=== PATIENT | female | born 1965 | race African-American/Black ===

== ENCOUNTER 2018-04-06 20:18 | Emergency (ER) | payer OTHER ==
[~2018-04-06] VITALS: Ht 157.5 cm; Wt 65.8 kg
[~2018-04-06 20:18] MED LIST: ACYCLOVIR800 MG ORAL; ALBUTEROL SULF8.5 GM INH; ALBUTEROL2.5 MG/3 M HHN; ALBUTEROL2.5 MG/3 M INH; ATROVENT HFA12.9 GM IH; AZITHROMYCIN250 MG ORAL; AZITHROMYCIN250 MG PO; COUMADIN5 MG PO; CYCLOBENZAPRINE10 MG ORAL; DIGOXIN250 MCG PO; DILTIAZEM 24HR360 MG PO; DOXYCYCLINE HY100 M6 PO; DULERA 100 MCG/13 GM INH; FLOVENT2 PUFF2 INH; IBUPROFEN600 MG ORAL; LEVAQUIN750 MG ORAL; MEDROL DOSEPAK4 MG ORAL; METRONIDAZOLE250 MG PO; NORCO 5-325 TA1 EAC1 ORAL; NORCO 5-325 TA1 EACH ORAL; NORCO 5-325 TA1 EACH PO; NORCO 5/3251 TAB ORAL; PHENERGAN/CODE120 ML ORAL; PHENERGAN/CODE120 ML PO; PHENERGAN6.25 MG/5 ORAL; PREDNISONE10 M2 PO; PREDNISONE20 M1 PO; PREDNISONE20 MG ORAL; PREDNISONE20 MG PO; PREDNISONE50 MG ORAL; PROMETHAZINE-C118 M1 ORAL; PROTONIX20 MG PO; PROTONIX40 MG ORAL; ROBAXIN-750750 MG PO; ROBITUSSIN DM5 ML ORAL; SUCRALFATE1 GM/10 ML PO; SYMBICORT 1601 PUFFS INH; SYMBICORT2 PUFF1 INH; TRAMADOL HCL50 MG ORAL; VIBRAMYCIN100 MG ORAL
[2018-04-06] MEDS ORDERED: HYDROcodone/Acetamin 10/325 tab ORAL ONE (21:15)
[2018-04-06 21:18] LABS: ANION GAP 10 mmol/L (5-15); BLOOD UREA NITROGEN 12 mg/dL (7-18); CALCIUM 9.5 MG/DL (8.5-10.1); CARBON DIOXIDE 28 MMOL/L (21-32); CHLORIDE 103 MMOL/L (98-107); CREATININE 1.1 MG/DL (0.55-1.30); POTASSIUM 3.6 MMOL/L (3.5-5.1); SODIUM 141 MMOL/L (136-145)
[2018-04-06 21:22] LABS: ALANINE AMINOTRANSFERASE 23 U/L (12-78); ALBUMIN 4.2 G/DL (3.4-5.0); ALBUMIN/GLOBULIN RATIO 0.9 (1.0-2.7); ALKALINE PHOSPHATASE 101 U/L (46-116); ASPARTATE AMINO TRANSFERASE 23 U/L (15-37); BILIRUBIN,TOTAL 0.4 MG/DL (0.2-1.0)
[2018-04-06 21:25] LABS: BASOPHILS % (AUTO) 2.1 % (0.0-2.0); EOSINOPHILS % (AUTO) 5.9 % (0.0-3.0); HEMATOCRIT 40.2 % (37.0-47.0); HEMOGLOBIN 13.8 G/DL (12.0-16.0); LYMPHOCYTES % (AUTO) 22.7 % (20.0-45.0); MEAN CORPUSCULAR VOLUME 98 FL (80-99); MONOCYTES % (AUTO) 11.2 % (1.0-10.0); NEUTROPHILS % (AUTO) 58.2 % (45.0-75.0); PLATELET COUNT 102 K/UL (150-450); RED CELL DISTRIBUTION WIDTH 11.4 % (11.6-14.8); WHITE BLOOD COUNT 7.2 K/UL (4.8-10.8)
--- NOTE | 2018-04-06 21:42 | Diagnostic Imaging Report ---
EXAM: XR Right Ankle Complete, 3 or More Views CLINICAL HISTORY: SWELL TECHNIQUE: Frontal, lateral and oblique views of the right ankle. COMPARISON: No relevant prior studies available. FINDINGS: Bones/joints: No acute fracture or malalignment. Soft tissues: Diffuse soft tissue edema. No radiopaque foreign body. Vasculature: Vascular calcifications. IMPRESSION: Diffuse soft tissue edema. No acute osseous abnormality.
[2018-04-06] MEDS ORDERED: ACETAMINOPHEN-1 EAC1 ORAL (21:45)
[2018-04-06] MEDS ORDERED: Clindamycin 150mg cap ORAL ONE (21:45)
[2018-04-06] MEDS ORDERED: CLINDAMYCIN HC300 MG ORAL (21:45)
[2018-04-06 22:02] VITALS: BP 122/93
--- NOTE | 2018-04-08 19:33 | Cardiology Report ---
APPROVED REPORT EKG Measurement Heart [id number] Normal sinus rhythm Cannot rule out Anterior infarct, age undetermined Abnormal ECG
--- NOTE | 2018-04-09 14:28 | Emergency Room Report ---
History of Present Illness General Chief Complaint: Lower Extremity Injury Source: Patient Present Illness HPI Patient sense with complaints of right leg swelling and erythema Patient reports over the past one and a half days she has noticed increased swelling and redness denies any chest pain or short of breath denies any pleurisy Denies any fall or trauma patient was concerned that she might have been bitten by an insect pain is worse with ambulation also touch Denies any fevers or chills The area involves the foot and proximal made up to the calf area as well Allergies: Coded Allergies: AMOXICILLIN (Verified Allergy, Mild, 07/08/12) Patient History Past Medical History: see triage record Pertinent Family History: none Reviewed Nursing Documentation: PMH: Agreed; PSxH: Agreed Nursing Documentation-PMH Hx Cardiac Problems: Yes - a fib Hx Hypertension: Yes Hx Asthma: Yes Hx COPD: Yes - Intubated 2010 Hx Cancer: No Hx Gastrointestinal Problems: Yes - GERD, ulcers Hx Neurological Problems: No Hx Meningitis: Yes - 1989 Hx Headaches: Yes Review of Systems All Other Systems: negative except mentioned in HPI Physical Exam Vital Signs Date Time Temp Pulse Resp B/P (MAP) Pulse Ox O2 Delivery O2 Flow Rate FiO2 04/06/18 20:27 98.8 82 16 122/70 98 Room Air 98.8 Sp02 EP Interpretation: reviewed, normal General Appearance: well appearing, no apparent distress Head: normocephalic, atraumatic Eyes: bilateral eye PERRL, bilateral eye EOMI ENT: normal pharynx, no angioedema Neck: full range of motion, supple Respiratory: chest non-tender, lungs clear Cardiovascular #1: regular rate, rhythm Gastrointestinal: normal bowel sounds, non tender, soft Musculoskeletal: other - Erythema and swelling to the right foot also involves the mid lower calf area circumferentially pulses are intact patient is able to move digits Neurologic: alert, oriented x3 Skin: other - Erythema involving the foot and lower leg approximately snf up the calf area circumferentially Lymphatic: no adenopathy Medical Decision Making Diagnostic Impression: Primary Impression: cellulitis ER Course Multiple differentials including but not limited to, venous insufficiency, DVT cellulitis, occult fracture all considered patient's ultrasound does not reveal any DVT X-ray also shows some soft tissue swelling no obvious fracture Patient's blood work is at baseline levels At this time patient will be symptomatically treated for possible cellulitis and requires close follow-up next 2-3 days Labs Test 7/28/18 20:55 04/06/18 21:15 White Blood Count 7.2 K/UL (4.8-10.8) Red Blood Count 4.10 M/UL (4.20-5.40) Hemoglobin 13.8 G/DL (12.0-16.0) Hematocrit 40.2 % (37.0-47.0) Mean Corpuscular Volume 98 FL (80-99) Mean Corpuscular Hemoglobin 33.6 PG (27.0-31.0) Mean Corpuscular Hemoglobin Concent 34.3 G/DL (32.0-36.0) Red Cell Distribution Width 11.4 % (11.6-14.8) Platelet Count 102 K/UL (150-450) Mean Platelet Volume 10.6 FL (6.5-10.1) Neutrophils (%) (Auto) 58.2 % (45.0-75.0) Lymphocytes (%) (Auto) 22.7 % (20.0-45.0) Monocytes (%) (Auto) 11.2 % (1.0-10.0) Eosinophils (%) (Auto) 5.9 % (0.0-3.0) Basophils (%) (Auto) 2.1 % (0.0-2.0) Sodium Level 141 MMOL/L (136-145) Potassium Level 3.6 MMOL/L (3.5-5.1) Chloride Level 103 MMOL/L (98-107) Carbon Dioxide Level 28 MMOL/L (21-32) Anion Gap 10 mmol/L (5-15) Blood Urea Nitrogen 12 mg/dL (7-18) Creatinine 1.1 MG/DL (0.55-1.30) Estimat Glomerular Filtration Rate > 60 mL/min (>60) Glucose Level 92 MG/DL (74-106) Calcium Level 9.5 MG/DL (8.5-10.1) Total Bilirubin 0.4 MG/DL (0.2-1.0) Aspartate Amino Transf (AST/SGOT) 23 U/L (15-37) Alanine Aminotransferase (ALT/SGPT) 23 U/L (12-78) Alkaline Phosphatase 101 U/L (46-116) Total Protein 8.9 G/DL (6.4-8.2) Albumin 4.2 G/DL (3.4-5.0) Globulin 4.7 g/dL Albumin/Globulin Ratio 0.9 (1.0-2.7) Prothrombin Time 10.3 SEC (9.30-11.50) Prothromb Time International Ratio 1.0 (0.9-1.1) Activated Partial Thromboplast Time 26 SEC (23-33) EKG Diagnostic Results Rate: normal Rhythm: NSR ST Segments: no acute changes Rhythm Strip Diag. Results EP Interpretation: yes Rate: 67 Rhythm: NSR, no PVC's, no ectopy Other X-Ray Diagnostic Results Other X-Ray Diagnostic Results : X-Ray ordered: Right foot # of Views/Limited Vs Complete: 3 View Indication: Pain EP Interpretation: Yes Interpretation: no dislocation, no fractures, other - Soft tissue changes Impression: Other - Soft tissue changes Electronically Signed by: Morales Fenton DO CT/MRI/US Diagnostic Results CT/MRI/US Diagnostic Results : Impression right lower extremity ultrasound: negative DVT Last Vital Signs Date Time Temp Pulse Resp B/P (MAP) Pulse Ox O2 Delivery O2 Flow Rate FiO2 04/06/18 22:02 97.2 94 19 122/93 100 Room Air Status: improved Disposition: HOME, SELF-CARE Condition: Improved Scripts Acetaminophen With Codeine (T#3) (TYLENOL #3 TAB*) Y Tab 1 TAB ORAL Q8H PRN for For Pain, #10 TAB Prov: Morales Fenton DO 04/06/18 Clindamycin Hcl (CLINDAMYCIN HCL) 300 Mg Capsule 300 MG ORAL THREE TIMES A DAY, #30 CAP Prov: Morales Fenton DO 04/06/18 Referrals: [facility] (PCP) Patient Instructions: Cellulitis, [id number] Additional Instructions: Patient is provided with the discharge instructions notified to follow up with primary doctor in the next 2-3 days otherwise return to the er with any worsening symptoms. Please note that this report is being documented using ETHER[employer] technology. This can lead to erroneous entry secondary to incorrect interpretation by the dictating instrument. Morales Fenton DO Apr 09, 2018 14:28
--- NOTE | 2018-04-13 14:16 | Diagnostic Imaging Report ---
APPROVED REPORT CPT Code: 35904 Present Symptoms Lower Extremity Pain: Right RIGHT LEG: Venous imaging reveals a patent deep venous system. There is no evidence of thrombus within the femoral, popliteal or tibial segments. The greater saphenous vein is also within normal limits. Doppler indicates normal spontaneous flow within these segments.
== END 2018-04-06 22:02 | disposition home or self-care (01) ==
LOC: EMR 20:30
DX: L03.115 Cellulitis of right lower limb (principal); Z88.0 Allergy status to penicillin; I10 Essential (primary) hypertension; J44.9 Chronic obstructive pulmonary disease, unspecified
CPT/HCPCS: 36415; 80053; 85025; 85610; 85730; 93005; 93971; 99284

== ENCOUNTER 2018-09-25 18:25 | Emergency (ER) | payer OTHER ==
[~2018-09-25] VITALS: Ht 154.9 cm; Wt 79.4 kg
[~2018-09-25 18:25] MED LIST changes: +ACETAMINOPHEN-1 EAC1 ORAL; +CLINDAMYCIN HC300 MG ORAL
--- NOTE | 2018-09-25 18:49 | NUR ---
ED Nurse Note: PT WOKE UP FEELING STIFFNESS ON L DORSAL NECK X 2 DAYS, NO RECENT INJURY. PAIN 9/10. PT STATED HAVING DIFFICULTY TURNING TO L SIDE. AOX4, VSS JAMES. WILL CONT TO MONITOR.
[2018-09-25 18:54] VITALS: BP 142/82
[2018-09-25] MEDS ORDERED: oxyCODONE HCL/Acetaminophen 5/325mg ORAL ONE (19:00)
--- NOTE | 2018-09-25 19:10 | NUR ---
ED Nurse Note: Received Pt and report from day shift. Pt is AO x 4times, VSS, on room air no distress.
--- NOTE | 2018-09-25 19:28 | NUR ---
ED Nurse Note: REPORT GIVEN TO CH[place] GIL.
[2018-09-25 19:46] LABS: APPEARANCE,URINE CLEAR; BILIRUBIN, URINE NEGATIVE (NEGATIVE); COLOR,URINE PALE YELLOW; GLUCOSE, URINE (UA) NEGATIVE (NEGATIVE); KETONES,URINE NEGATIVE (NEGATIVE); LEUKOCYTE ESTERASE ,URINE 3+ (NEGATIVE); NITRITE,URINE NEGATIVE (NEGATIVE); PH,URINE 5 (4.5-8.0); PROTEIN,URINE NEGATIVE (NEGATIVE); UROBILINOGEN,URINE NORMAL MG/DL (0.0-1.0)
[2018-09-25] MEDS ORDERED: Ketorolac 30mg Inj IM ONE (20:30)
--- NOTE | 2018-09-25 20:50 | Emergency Room Report ---
History of Present Illness General Chief Complaint: Headache Present Illness HPI Pt. presents to the ED c/o 04/19 in severity throbbing/sharp HEARN on the left side since yesterday. Described as radiating up the neck posteriorly on the left side and sharp in the left parietal and temporal area. Denies sudden onset of HEARN. reports significant stiffness in the left side of the neck. Denies fevers, chills, recent URI,cough,ear pain, photophobia, nausea or vomiting. pt. denies paresthesias or weakness in the extremities. Denies recent trauma or falls. denies strenuous activities. Denies dizziness or visual changes. No relieving factors. Hx of HTN, A-fib, COPD and GERD. Allergies: Coded Allergies: AMOXICILLIN (Verified Allergy, Mild, 07/08/12) Patient History Past Medical History: see triage record Past Surgical History: none Pertinent Family History: none Reviewed Nursing Documentation: PMH: Agreed; PSxH: Agreed Nursing Documentation-PMH Hx Cardiac Problems: Yes - a fib Hx Hypertension: Yes Hx Asthma: Yes Hx COPD: Yes - Intubated 2010 Hx Cancer: No Hx Gastrointestinal Problems: Yes - GERD, ulcers Hx Neurological Problems: No Hx Meningitis: Yes - 1989 Hx Headaches: Yes Review of Systems All Other Systems: negative except mentioned in HPI Physical Exam Vital Signs Date Time Temp Pulse Resp B/P (MAP) Pulse Ox O2 Delivery O2 Flow Rate FiO2 09/25/18 18:37 99.0 86 18 149/85 95 Room Air Sp02 EP Interpretation: reviewed, normal General Appearance: no apparent distress, alert, GCS 15, non-toxic Head: normocephalic, atraumatic Eyes: bilateral eye normal inspection, bilateral eye PERRL ENT: hearing grossly normal, normal voice Neck: full range of motion, no bony tend, tender lateral - left lateral cervical TTP and stiffness. Respiratory: chest non-tender, lungs clear, normal breath sounds, speaking full sentences Cardiovascular #1: regular rate, rhythm Genitourinary: normal inspection, no CVA tenderness Musculoskeletal: back normal, gait/station normal, normal range of motion, tender - TTP to the left side of the neck and left parietal head. Neurologic: alert, oriented x3, responsive, motor strength/tone normal, sensory intact, normal gait, speech normal, no pronator, other - No facial droop., grossly normal Psychiatric: judgement/insight normal Skin: normal color, no rash, warm/dry, well hydrated Medical Decision Making PA Attestation Dr. Rick is my supervising Physician whom patient management has been discussed with. Diagnostic Impression: Primary Impression: UTI (urinary tract infection) Qualified Codes: N30.01 - Acute cystitis with hematuria Additional Impression: Headache Qualified Codes: R51 - Headache ER Course Pt. presents to the ED c/o 04/19 in severity throbbing/sharp HEARN on the left side since yesterday. Described as radiating up the neck posteriorly on the left side and sharp in the left parietal and temporal area. Denies sudden onset of HEARN. reports significant stiffness in the left side of the neck. Denies fevers, chills, recent URI,cough,ear pain, photophobia, nausea or vomiting. pt. denies paresthesias or weakness in the extremities. Denies recent trauma or falls. denies strenuous activities. Denies dizziness or visual changes. No relieving factors. Hx of HTN, A-fib, COPD and GERD. Ddx considered but are not limited to migraine, SAH, Pseudomotor Cerebri,, Mass lesion, Cluster HEARN, Tension HEARN, Post lumbar puncture HEARN. Vital signs: are WNL, pt. is afebrile H&PE are most consistent with Headache -moderate will do CT imaging and check for UTI ORDERS: - UA: Positive for UTI- moderate bacteria and elevation of inflammatory markers. - CT Head No Contrast: Unremarkable for acute pathology- Per official radiology report- Please see report for specific details. ED INTERVENTIONS: -Soma - Compazine PO -Percocet -IM Toradol -Macrobid -I do not identify an emergent condition at this time. With current presentation , pt. is stable for close outpatient follow up and conservative treatment. D/ w pt. to return promptly to ED with worsening or new symptoms.- Pt. verbalizes' understanding and agreement with proposed treatment plan and Strict ED return precautions. DISCHARGE: At this time pt. is stable for d/c to home. Will provide printed patient care instructions, and any necessary prescriptions. Care plan and follow up instructions have been discussed with the patient prior to discharge. Labs Test 09/25/18 19:30 Urine Color Pale yellow Urine Appearance Clear Urine pH 5 (4.5-8.0) Urine Specific [place] 1.010 (1.005-1.035) Urine Protein Negative (NEGATIVE) Urine Glucose (UA) Negative (NEGATIVE) Urine Ketones Negative (NEGATIVE) Urine Blood 1+ (NEGATIVE) Urine Nitrite Negative (NEGATIVE) Urine Bilirubin Negative (NEGATIVE) Urine Urobilinogen Normal MG/DL (0.0-1.0) Urine Leukocyte Esterase 3+ (NEGATIVE) Urine RBC 2-4 /HPF (0 - 2) Urine WBC 10-15 /HPF (0 - 2) Urine Squamous Epithelial Cells Few /LPF (NONE/OCC) Urine Bacteria Moderate /HPF (NONE) CT/MRI/US Diagnostic Results CT/MRI/US Diagnostic Results : Imaging Test Ordered: CT Head No Contrast Impression Unremarkable for acute pathology- Per official radiology report- Please see report for specific details. Last Vital Signs Date Time Temp Pulse Resp B/P (MAP) Pulse Ox O2 Delivery O2 Flow Rate FiO2 09/25/18 18:54 98.7 80 18 142/82 98 Room Air Disposition: HOME, SELF-CARE Condition: Stable Scripts Methocarbamol* (ROBAXIN-750*) 750 Mg Tablet 750 MG PO QID for 7 Days, #28 TAB 0 Refills Prov: Indira Shafer 09/25/18 Acetaminophen* (TYLENOL EXTRA STRENGTH*) 500 Mg Tablet 500 MG ORAL Q6H, #20 TAB 0 Refills Prov: Indira Shafer 09/25/18 Nitrofurantoin Monohyd/M-Cryst* (MACROBID 100 MG*) 100 Mg Capsule 100 MG ORAL EVERY 12 HOURS for 5 Days, #10 CAP Prov: Indira Shafer 09/25/18 Referrals: [facility] (PCP) Patient Instructions: General Headache Without Cause Additional Instructions: Take medications as directed. Follow up with a Primary Care Provider in 3-5 days For a referral to have NEUROLOGIST Evaluation, even if your symptoms have resolved. --Please review list of primary care clinics, if you do not already have a primary care provider Return promptly back to the ED if new symptoms occur, or current symptoms become worse. - Please note that this Emergency Department Report was dictated using [employer] cutter plasma arc technology software, occasionally this can lead to erroneous entry secondary to interpretation by the dictation equipment. Indira Shafer Sep 25, 2018 20:49
[2018-09-25] MEDS ORDERED: NITROFURANTOIN100 M2 ORAL (21:30)
[2018-09-25] MEDS ORDERED: ROBAXIN-750750 MG PO (21:30)
[2018-09-25] MEDS ORDERED: TYLENOL EXTRA500 MG ORAL (21:30)
[2018-09-25 21:40] VITALS: BP 138/78
--- NOTE | 2018-09-25 21:40 | NUR ---
ED Nurse Note: Pt cleared DC by CLAUDIO. Pt is AO x 4times, VSS, on room air no distress. Belongings given to Pt. DC and meds instructions given to Pt, Pt understood well. ID bend removed. Pt walkled out unit with steady gait. Pt's family will drive home.
--- NOTE | 2018-09-26 10:45 | Diagnostic Imaging Report ---
Indication: Headache Technique: Contiguous 5 mm thick transaxial imaging of the head obtained in a Siemens Sensation [address] scanner. Soft tissue and bone windows generated. Automatic Exposure Control was utilized. Total Dose length Product (DLP): 1376.[address] Dose Index Volume (CTDIvol): 70.38 mGy Comparison: none Findings: The size and configuration of the cortical sulci, basal cisterns, and ventricles are within normal limits for age. There is no mass effect, midline shift, or edema identified. There is no evidence of acute hemorrhage or abnormal intra-axial or extra-axial fluid collections. The bones and soft tissues are unremarkable. Impression: No mass effect, edema or acute bleed. The CT scanner at [facility] is accredited by the [employer] and the scans are performed using dose optimization techniques as appropriate to a performed exam including Automatic Exposure control.
== END 2018-09-25 21:40 | disposition home or self-care (01) ==
LOC: EMR 19:16
DX: N39.0 Urinary tract infection, site not specified (principal); R51 Headache; I10 Essential (primary) hypertension; I48.91 Unspecified atrial fibrillation; K21.9 Gastro-esophageal reflux disease without esophagitis; J44.9 Chronic obstructive pulmonary disease, unspecified
CPT/HCPCS: 70450; 81003; 87086; 96372; 99284; J1885

== ENCOUNTER 2018-11-27 14:08 | Emergency (ER) | payer OTHER ==
[~2018-11-27] VITALS: Ht 154.9 cm; Wt 79.4 kg
[~2018-11-27 14:08] MED LIST changes: +NITROFURANTOIN100 M2 ORAL; +TYLENOL EXTRA500 MG ORAL
[2018-11-27 14:32] VITALS: BP 134/87
[2018-11-27] MEDS ORDERED: Albuterol ud Inhalation HHN ONE ×2 (14:45→16:30)
[2018-11-27] MEDS ORDERED: Ipratropium 0.02% Inh Soln 2.5ml UD HHN ONE ×2 (14:45→16:30)
--- NOTE | 2018-11-27 15:08 | NUR ---
ED Nurse Note: PT. AAOX4. AMBULATORY. CAME IN TO ER DUE TO DYSPNEA SINCE LAST NIGHT WITH MUSCULAR CP THAT STARTED TODAY. COUGHING NOTED
--- NOTE | 2018-11-27 15:14 | Emergency Room Report ---
History of Present Illness General Chief Complaint: Dyspnea/Respdistress Source: Patient Present Illness HPI This patient has a history of COPD. She states that for the past 2 days she has had cold symptoms in addition to wheezing and shortness of breath. She states she's also developed some chest pain and pressure today. She denies fever or chills. She denies nausea or vomiting. She states that she did use her albuterol nebulizer machine. She does not have any other type of medications for her COPD. She stopped smoking 20 years ago. She denies abdominal pain. She has no other complaints. Allergies: Coded Allergies: AMOXICILLIN (Verified Allergy, Mild, 07/08/12) Patient History Past Medical History: see triage record, HTN, AFib, COPD, ulcer, GERD Social History: Reports: alcohol use; Denies: smoking, drug use Last Menstrual Period: na Now: No Reviewed Nursing Documentation: PMH: Agreed; PSxH: Agreed Nursing Documentation-PMH Hx Cardiac Problems: Yes - a fib Hx Hypertension: Yes Hx Asthma: Yes Hx COPD: Yes - Intubated 2010 Hx Cancer: No Hx Gastrointestinal Problems: Yes - GERD, ulcers Hx Neurological Problems: No Hx Meningitis: Yes - 1989 Hx Headaches: Yes Review of Systems All Other Systems: negative except mentioned in HPI Physical Exam Vital Signs Date Time Temp Pulse Resp B/P (MAP) Pulse Ox O2 Delivery O2 Flow Rate FiO2 11/27/18 14:18 98.8 90 24 119/75 95 Room Air 11/27/18 14:42 21 Sp02 EP Interpretation: reviewed, normal General Appearance: no apparent distress, alert, GCS 15, non-toxic Head: normocephalic, atraumatic Eyes: bilateral eye normal inspection, bilateral eye PERRL ENT: hearing grossly normal, normal pharynx, no angioedema, normal voice Neck: full range of motion, supple/symm/no masses Respiratory: chest non-tender, no respiratory distress, no retraction, no accessory muscle use, speaking full sentences, wheezing, expiration Cardiovascular #1: regular rate, rhythm, no edema Gastrointestinal: normal bowel sounds, non tender, soft, non-distended, no guarding, no rebound Rectal: deferred Musculoskeletal: back normal, gait/station normal, normal range of motion, non- tender Neurologic: alert, oriented x3, responsive, motor strength/tone normal, sensory intact, speech normal Psychiatric: judgement/insight normal, memory normal, mood/affect normal, no suicidal/homicidal ideation Skin: normal color, no rash, warm/dry, well hydrated Medical Decision Making Diagnostic Impression: Primary Impression: COPD exacerbation ER Course This patient has a clinical presentation consistent with COPD exacerbation. Patient has a history of COPD and has wheezing on physical exam. The patient was given albuterol and Atrovent nebulizer treatments. The patient was also given prednisone orally. The patient had significant improvement in subjective shortness of breath. The patient's lung exam improved significantly. I will also treat the patient with a course of antibiotics as this has been shown to improve the course of a COPD exacerbation. The patient was given close return precautions and followup instructions. Laboratory Tests Test 11/27/18 14:37 White Blood Count 9.3 K/UL (4.8-10.8) Red Blood Count 4.11 M/UL (4.20-5.40) L Hemoglobin 13.8 G/DL (12.0-16.0) Hematocrit 41.5 % (37.0-47.0) Mean Corpuscular Volume 101 FL (80-99) H Mean Corpuscular Hemoglobin 33.7 PG (27.0-31.0) H Mean Corpuscular Hemoglobin Concent 33.4 G/DL (32.0-36.0) Red Cell Distribution Width 12.2 % (11.6-14.8) Platelet Count 143 K/UL (150-450) L Mean Platelet Volume 7.4 FL (6.5-10.1) Neutrophils (%) (Auto) 63.7 % (45.0-75.0) Lymphocytes (%) (Auto) 16.4 % (20.0-45.0) L Monocytes (%) (Auto) 8.6 % (1.0-10.0) Eosinophils (%) (Auto) 9.7 % (0.0-3.0) H Basophils (%) (Auto) 1.7 % (0.0-2.0) Sodium Level 139 MMOL/L (136-145) Potassium Level 5.1 MMOL/L (3.5-5.1) Chloride Level 102 MMOL/L (98-107) Carbon Dioxide Level 25 MMOL/L (21-32) Anion Gap 12 mmol/L (5-15) Blood Urea Nitrogen 12 mg/dL (7-18) Creatinine 0.8 MG/DL (0.55-1.30) Estimate Glomerular Filtration Rate > 60 mL/min (>60) Glucose Level 83 MG/DL (74-106) Calcium Level 9.8 MG/DL (8.5-10.1) Total Bilirubin 0.8 MG/DL (0.2-1.0) Aspartate Amino Transferase (AST) 5 U/L (15-37) L Alanine Aminotransferase (ALT) 22 U/L (12-78) Alkaline Phosphatase 92 U/L (46-116) Total Creatine Kinase 229 U/L (26-308) Creatine Kinase MB 1.0 NG/ML (0.0-3.6) Creatine Kinase MB Relative Index 0.4 Troponin I 0.000 ng/mL (0.000-0.056) Total Protein 8.8 G/DL (6.4-8.2) H Albumin 4.1 G/DL (3.4-5.0) Globulin 4.7 g/dL Albumin/Globulin Ratio 0.9 (1.0-2.7) L Laboratory Tests Test 11/27/18 14:37 White Blood Count Pending Red Blood Count Pending Hemoglobin Pending Hematocrit Pending Mean Corpuscular Volume Pending Mean Corpuscular Hemoglobin Pending Mean Corpuscular Hemoglobin Concent Pending Red Cell Distribution Width Pending Platelet Count Pending Mean Platelet Volume Pending Neutrophils (%) (Auto) Pending Lymphocytes (%) (Auto) Pending Monocytes (%) (Auto) Pending Eosinophils (%) (Auto) Pending Basophils (%) (Auto) Pending Sodium Level Pending Potassium Level Pending Chloride Level Pending Carbon Dioxide Level Pending Blood Urea Nitrogen Pending Creatinine Pending Estimate Glomerular Filtration Rate Pending Glucose Level Pending Calcium Level Pending Total Bilirubin Pending Aspartate Amino Transferase (AST) Pending Alanine Aminotransferase (ALT) Pending Alkaline Phosphatase Pending Total Creatine Kinase Pending Creatine Kinase MB Pending Troponin I Pending Total Protein Pending Albumin Pending Globulin Pending EKG Diagnostic Results Rate: normal Rhythm: NSR ST Segments: no acute changes Rhythm Strip Diag. Results EP Interpretation: yes Rate: 80's Rhythm: NSR, no PVC's, no ectopy Chest X-Ray Diagnostic Results Chest X-Ray Diagnostic Results : Chest X-Ray Ordered: Yes # of Views/Limited/Complete: 1 View Indication: Shortness of Breath Interpretation: other - Lingular opacity Impression: Other - See above Electronically Signed by: Magaly Barry DO Last Vital Signs Date Time Temp Pulse Resp B/P (MAP) Pulse Ox O2 Delivery O2 Flow Rate FiO2 11/27/18 14:42 85 18 99 Room Air 21 11/27/18 14:32 98.8 134/87 Status: improved Disposition: HOME, SELF-CARE Condition: Improved Patient Instructions: Chronic Obstructive Pulmonary Disease Exacerbation Magaly Barry DO Nov 27, 2018 15:14
[2018-11-27] MEDS ORDERED: cefTRIAXone 1 GM in NS 55 ML IVPB ONE (15:15)
--- NOTE | 2018-11-27 15:27 | Diagnostic Imaging Report ---
Indication: Shortness of breath Technique: One view of the chest Comparison: 03/06/2016 Findings: 5 less optimal inspiration currently. The heart is borderline enlarged. Lungs and pleural spaces are clear. No definite interim change Impression: Borderline cardiomegaly. No definite acute process
[2018-11-27 15:28] LABS: ANION GAP 12 mmol/L (5-15); BLOOD UREA NITROGEN 12 mg/dL (7-18); CALCIUM 9.8 MG/DL (8.5-10.1); CARBON DIOXIDE 25 MMOL/L (21-32); CHLORIDE 102 MMOL/L (98-107); CREATININE 0.8 MG/DL (0.55-1.30); POTASSIUM 5.1 MMOL/L (3.5-5.1); SODIUM 139 MMOL/L (136-145)
[2018-11-27 15:42] LABS: ALANINE AMINOTRANSFERASE 22 U/L (12-78); ALBUMIN 4.1 G/DL (3.4-5.0); ALBUMIN/GLOBULIN RATIO 0.9 (1.0-2.7); ALKALINE PHOSPHATASE 92 U/L (46-116); ASPARTATE AMINO TRANSFERASE 5 U/L (15-37); BASOPHILS % (AUTO) 1.7 % (0.0-2.0); BILIRUBIN,TOTAL 0.8 MG/DL (0.2-1.0); CREATINE KINASE 229 U/L (26-308); EOSINOPHILS % (AUTO) 9.7 % (0.0-3.0); HEMATOCRIT 41.5 % (37.0-47.0); HEMOGLOBIN 13.8 G/DL (12.0-16.0); LYMPHOCYTES % (AUTO) 16.4 % (20.0-45.0); MEAN CORPUSCULAR VOLUME 101 FL (80-99); MONOCYTES % (AUTO) 8.6 % (1.0-10.0); NEUTROPHILS % (AUTO) 63.7 % (45.0-75.0); PLATELET COUNT 143 K/UL (150-450); RED BLOOD COUNT 4.11 M/UL (4.20-5.40); RED CELL DISTRIBUTION WIDTH 12.2 % (11.6-14.8); WHITE BLOOD COUNT 9.3 K/UL (4.8-10.8)
--- NOTE | 2018-11-27 16:40 | NUR ---
ED Nurse Note: PT. WAS INFORMED THAT SHE WILL BE TRANSFERRED TO ANOTHER HOSPITAL BUT PT. REFUSED AND WAS TOLD THAT SHE INFORMED THE ERMD ALREADY.
--- NOTE | 2018-11-27 16:43 | NUR ---
ED Nurse Note: RT AT THE BEDSIDE
[2018-11-27] MEDS ORDERED: PREDNISONE20 MG ORAL ×2 (16:56→17:52)
[2018-11-27] MEDS ORDERED: ZITHROMAX250 MG ORAL ×2 (16:56→17:52)
[2018-11-27 18:11] VITALS: BP 148/65
--- NOTE | 2018-11-27 18:12 | NUR ---
ER DISCHARGE NOTE: Patient is cleared to be discharged per ERMD, pt is aox4, on room air, with stable vital signs. pt was given dc and prescription instructions, pt was able to verbalize understanding, pt id band and iv site removed without complications. pt is able to ambulate with steady gait. pt took all belongings.
--- NOTE | 2018-11-30 00:08 | Cardiology Report ---
APPROVED REPORT EKG Measurement Heart [id number] Normal sinus rhythm Normal ECG
== END 2018-11-27 18:12 | disposition home or self-care (01) ==
LOC: EMR 14:51
DX: J44.1 Chronic obstructive pulmonary disease with (acute) exacerbation (principal); I10 Essential (primary) hypertension; I48.91 Unspecified atrial fibrillation; Z87.891 Personal history of nicotine dependence; Z88.0 Allergy status to penicillin; Z86.61 Personal history of infections of the central nervous system
CPT/HCPCS: 36415; 71045; 80053; 82550; 82553; 84484; 85025; 93005; 94640; 96361; 96365; 99284; J0696; J7512

== ENCOUNTER 2019-05-01 14:59 | Emergency (ER) | payer OTHER ==
[~2019-05-01] VITALS: Ht 154.9 cm; Wt 79.4 kg
[~2019-05-01 14:59] MED LIST changes: +ZITHROMAX250 MG ORAL
--- NOTE | 2019-05-01 15:14 | NUR ---
ED Nurse Note: PT WALKED IN TO ER TODAY FROM HOME. AOX4. PT C/O ASTHMA EXACERBATION X 2 DAYS AGO. PT STATES SHE DID A NEBULIZER TREATMENT AT HOME BUT WITHOUT RELIEF. AT BEDSIDE, NO SIGNS OF RESPIRATORY DISTRESS, RETRACTIONS, OR ACCESSORY MUSCLE USE NOTED. RR14, O2SAT 100%. WHEEZING AND CRACKLES AUSCULTATED IN ALL LOBES. PT ALSO C/O SCIATICA PAIN X 2 DAYS AGO. PT STATES SHE HAS HX OF SCIATICA PAIN AND TOOK A MUSCLE RELAXANT TODAY BUT WITHOUT RELIEF. PT AMBULATORY WITH STEADY GAIT.
[2019-05-01] MEDS ORDERED: Dexamethasone 4mg/ml vial IVP ONE (15:15)
[2019-05-01 15:16] VITALS: BP 135/87
--- NOTE | 2019-05-01 15:28 | NUR ---
ED Nurse Note: RT CALLED FOR BREATHING TX.
--- NOTE | 2019-05-01 15:34 | NUR ---
ED Nurse Note: RT AT BEDSIDE.
--- NOTE | 2019-05-01 15:36 | Emergency Room Report ---
History of Present Illness General Chief Complaint: Asthma Source: Medical Record Present Illness HPI 53-year-old female presents with acute shortness of breath over the past 2 days , no aggravating factors alleviated with albuterol, severity is moderate, constant, patient reports that she is having some shortness of breath and a cough, she states she is having another COPD exacerbation no fever no chills, she also endorses sciatic back pain that has been constant and aggravated with movement over the last week, she states that she has sharp pain that radiates down her right leg, no bowel bladder retention/incontinence no perianal numbness , patient wants pain medication for that as well as treatment for COPD. Allergies: Coded Allergies: AMOXICILLIN (Verified Allergy, Mild, 07/08/12) Patient History Past Medical History: see triage record Last Menstrual Period: menopause Reviewed Nursing Documentation: PMH: Agreed; PSxH: Agreed Nursing Documentation-PMH Past Medical History: No History, Except For Hx Cardiac Problems: Yes - a fib Hx Hypertension: Yes Hx Asthma: Yes Hx COPD: Yes - Intubated 2010 Hx Cancer: No Hx Gastrointestinal Problems: Yes - GERD, ulcers Hx Neurological Problems: No Hx Meningitis: Yes - 1989 Hx Headaches: Yes Review of Systems All Other Systems: negative except mentioned in HPI Physical Exam Vital Signs Date Time Temp Pulse Resp B/P (MAP) Pulse Ox O2 Delivery O2 Flow Rate FiO2 05/01/19 15:03 98.8 85 16 138/80 (99) 99 Room Air Sp02 EP Interpretation: reviewed, normal General Appearance: well appearing, no apparent distress, alert Head: normocephalic, atraumatic Eyes: bilateral eye PERRL, bilateral eye EOMI ENT: uvula midline, moist mucus membranes Neck: supple, thyroid normal, supple/symm/no masses Respiratory: no respiratory distress, no accessory muscle use, wheezing - Bilateral wheezing moderate in severity Cardiovascular #1: normal peripheral pulses, regular rate, rhythm, no edema, no gallop, no murmur Gastrointestinal: non tender, soft, no guarding, no rebound Musculoskeletal: normal inspection, other - 5 out of 5 strength plantar dorsiflexion of the right foot, out of 5 strength in extension of the knee, 5 out of 5 strength flexion-extension at the right hip, straight leg raise positive, no midline tenderness, sensation grossly intact Neurologic: alert, oriented x3 Psychiatric: mood/affect normal Skin: no rash, warm/dry Medical Decision Making Diagnostic Impression: Primary Impression: COPD with exacerbation ER Course 53-year-old female history of COPD presents with acute shortness of breath that has since improved, no evidence of pneumonia no evidence of pneumothorax, patient most likely with a COPD exacerbation, chelsea perez Decadron, reevaluation at 5:15 PM, wheezing is now mild. No accessory muscle use, patient has no acute distress disposition home with return precautions EKG Diagnostic Results EKG Time: 15:48 EP Interpretation: NSR, rate 27, QTc 454, no acute ST elevations, normal axis Rate: normal Rhythm: NSR ST Segments: no acute changes Rhythm Strip Diag. Results Rhythm Strip Time: 16:18 EP Interpretation: yes Rate: 94 Rhythm: NSR, no PVC's, no ectopy Chest X-Ray Diagnostic Results Chest X-Ray Diagnostic Results : Chest X-Ray Ordered: Yes # of Views/Limited/Complete: 1 View Indication: Shortness of Breath EP Interpretation: Yes Interpretation: no consolidation, no effusion, no pneumothorax, no acute cardiopulmonary disease Impression: No acute disease Electronically Signed by: Abdulaziz Robles MD Last Vital Signs Date Time Temp Pulse Resp B/P (MAP) Pulse Ox O2 Delivery O2 Flow Rate FiO2 05/01/19 15:16 98.6 88 14 135/87 100 Room Air Disposition: HOME, SELF-CARE Condition: Stable Scripts Prednisone* (PREDNISONE*) 20 Mg Tablet 40 MG ORAL DAILY for 4 Days, #8 TAB Prov: Abdulaziz Robles MD 05/01/19 Albuterol Sulfate* (ALBUTEROL SULFATE MDI*) 8.5 Gm Hfa.aer.ad 2 PUFF INH Q4H PRN for cough/wheezing, #1 EA 0 Refills Prov: Abdulaziz Robles MD 05/01/19 Referrals: [facility] Patient Instructions: Chronic Obstructive Pulmonary Disease Exacerbation Additional Instructions: The patient was provided with discharge instructions, notified to follow-up with a primary care doctor and or specialist in the next 24-48 hours, and to return to the ED if they have worsening of their symptoms. Please note that this report is being documented using [employer] technology. This can lead to erroneous entry secondary to incorrect interpretation by the dictating instrument. Abdulaziz Robles MD May 01, 2019 15:36
--- NOTE | 2019-05-01 15:36 | NUR ---
ED Nurse Note: RADIOLOGY CALLED FOR CXR.
[2019-05-01] MEDS: Albuterol ud Inhalation HHN SCH ×3 (15:37→16:07)
[2019-05-01] MEDS: Ipratropium 0.02% Inh Soln 2.5ml UD HHN SCH ×3 (15:37→16:06)
--- NOTE | 2019-05-01 15:50 | NUR ---
ED Nurse Note: XRAY AT BEDSIDE.
[2019-05-01 16:11] LABS: BASOPHILS % (AUTO) 1.5 % (0.0-2.0); EOSINOPHILS % (AUTO) 9.9 % (0.0-3.0); HEMATOCRIT 37.9 % (37.0-47.0); HEMOGLOBIN 13.6 G/DL (12.0-16.0); MEAN CORPUSCULAR VOLUME 95 FL (80-99); MONOCYTES % (AUTO) 9.1 % (1.0-10.0); NEUTROPHILS % (AUTO) 63.4 % (45.0-75.0); PLATELET COUNT 232 K/UL (150-450); RED BLOOD COUNT 3.97 M/UL (4.20-5.40); RED CELL DISTRIBUTION WIDTH 11.2 % (11.6-14.8); WHITE BLOOD COUNT 9.7 K/UL (4.8-10.8)
[2019-05-01] MEDS: oxyCODONE HCL/Acetaminophen 5/325mg ORAL ONE ×2 (16:17→16:27)
[2019-05-01] MEDS ORDERED: Morphine Sulfate 4mg/ml Inj (IV USE ONLY) ONE (16:25)
[2019-05-01] MEDS ORDERED: Morphine Sulfate 4mg/ml Inj (IV USE ONLY) IVP ONE ×2 (16:30→17:45)
[2019-05-01 16:38] LABS: ANION GAP 9 mmol/L (5-15); BLOOD UREA NITROGEN 12 mg/dL (7-18); CALCIUM 9.7 MG/DL (8.5-10.1); CARBON DIOXIDE 25 MMOL/L (21-32); CHLORIDE 106 MMOL/L (98-107); SODIUM 140 MMOL/L (136-145)
--- NOTE | 2019-05-01 16:41 | Diagnostic Imaging Report ---
Indication: Cough Technique: One view of the chest Comparison: 11/27/2018 Findings: The heart is enlarged. Lungs and pleural spaces are clear. There is no significant interim change Impression: No acute process
[2019-05-01 16:44] LABS: APPEARANCE,URINE CLEAR; BILIRUBIN, URINE NEGATIVE (NEGATIVE); COLOR,URINE PALE YELLOW; GLUCOSE, URINE (UA) NEGATIVE (NEGATIVE); KETONES,URINE NEGATIVE (NEGATIVE); LEUKOCYTE ESTERASE ,URINE 1+ (NEGATIVE); NITRITE,URINE NEGATIVE (NEGATIVE); PH,URINE 6 (4.5-8.0); PROTEIN,URINE NEGATIVE (NEGATIVE); UROBILINOGEN,URINE NORMAL MG/DL (0.0-1.0)
[2019-05-01 16:56] LABS: ALANINE AMINOTRANSFERASE 20 U/L (12-78); ALBUMIN 4.4 G/DL (3.4-5.0); ALBUMIN/GLOBULIN RATIO 1.1 (1.0-2.7); ALKALINE PHOSPHATASE 79 U/L (46-116); ASPARTATE AMINO TRANSFERASE 20 U/L (15-37); BILIRUBIN,TOTAL 0.5 MG/DL (0.2-1.0); CKMB 1.7 NG/ML (0.0-3.6); CREATINE KINASE 168 U/L (26-308)
[2019-05-01] MEDS ORDERED: PREDNISONE20 MG ORAL (17:28)
[2019-05-01] MEDS ORDERED: ALBUTEROL SULF8.5 GM INH (17:28)
[2019-05-01 17:39] VITALS: BP 136/80
--- NOTE | 2019-05-01 17:39 | NUR ---
ED Nurse Note: PT LAYING PEACEFULLY IN BED IN NAD. AOX4. PRESCRIPTIONS AND DISCHARGE PAPERWORK EXPLAINED TO PT. PT VERBALIZES UNDERSTANDING AND ALL QUESTIONS ANSWERED. PRESCRIPTIONS AND DISCHARGE PAPERWORK GIVEN TO PT, IV AND ID WRISTBAND REMOVED. PT WALKED OUT OF ER WITH STEADY GAIT AND ALL BELONGINGS ACCOMPANIED BY FRIEND.
[2019-05-01] MEDS ORDERED: TESSALON PERLE100 M2 ORAL (17:57)
--- NOTE | 2019-05-04 13:08 | Cardiology Report ---
APPROVED REPORT EKG Measurement Heart [id number] Normal sinus rhythm Normal ECG
== END 2019-05-01 17:39 | disposition home or self-care (01) ==
LOC: EMR 15:30
DX: J44.1 Chronic obstructive pulmonary disease with (acute) exacerbation (principal); Z88.1 Allergy status to other antibiotic agents; I48.91 Unspecified atrial fibrillation; I10 Essential (primary) hypertension; K21.9 Gastro-esophageal reflux disease without esophagitis; Z87.11 Personal history of peptic ulcer disease
CPT/HCPCS: 36415; 71045; 80053; 81003; 82550; 82553; 84484; 85025; 93005; 94640; 94664; 96361; 96374; 96375; 96376; 99284; J1100; J2270

== ENCOUNTER 2019-10-15 09:10 | Emergency (ER) | payer OTHER ==
[~2019-10-15] VITALS: Ht 154.9 cm; Wt 79.4 kg
[~2019-10-15 09:10] MED LIST changes: +TESSALON PERLE100 M2 ORAL
--- NOTE | 2019-10-15 09:23 | NUR ---
ED Nurse Note: PT FROM WORK WALKED IN DUE TO INTERMITTENT LOWER ABD PAIN X 5 DAYS. STATES SHE HAS HX OF GASTRIC ULCER AND IS TAKING PANTOPRAZOLE. DENIES BLOOD ON HER STOOL. NO DIARRHEA OR CONSTIPATION AND LAST BM WAS YESTERDAY. AAOX 4 AND AMBULATORY.
[2019-10-15 09:28] VITALS: BP 142/88
--- NOTE | 2019-10-15 09:37 | Emergency Room Report ---
History of Present Illness General Chief Complaint: Abdominal Pain Source: Patient Present Illness HPI Patient is a 54-year-old female presents after increased left-sided abdominal pain as well as nonproductive cough. Patient a prior history of COPD. She reports of increased multiple coughing episodes. Had not been vomiting. Denies any fever. Denies being a smoker. Reports having recent negative chest x-ray. She had taken albuterol prior to arrival without any improvement. Reports being sick for the past 2 to 3 days. Mild to moderate headache. Denies any neck stiffness. Denies fever Allergies: Coded Allergies: AMOXICILLIN (Verified Allergy, Mild, 07/08/12) Patient History Past Medical History: see triage record Last Menstrual Period: 2016 Now: No Reviewed Nursing Documentation: PMH: Agreed; PSxH: Agreed Nursing Documentation-PMH Past Medical History: No History, Except For Hx Cardiac Problems: Yes - a fib Hx Hypertension: Yes Hx Asthma: Yes Hx COPD: Yes - Intubated 2010 Hx Cancer: No Hx Gastrointestinal Problems: Yes - GERD, ulcers Hx Neurological Problems: No Hx Meningitis: Yes - 1989 Hx Headaches: Yes Review of Systems All Other Systems: negative except mentioned in HPI Physical Exam Vital Signs Date Time Temp Pulse Resp B/P (MAP) Pulse Ox O2 Delivery O2 Flow Rate FiO2 10/15/19 09:13 97.9 94 17 148/84 (105) 95 Room Air Sp02 EP Interpretation: reviewed, normal General Appearance: normal inspection, well appearing, no apparent distress, alert, GCS 15 Head: atraumatic ENT: normal ENT inspection, hearing grossly normal, normal voice Neck: normal inspection, full range of motion, supple, no bony tend Respiratory: normal inspection, lungs clear, normal breath sounds, no respiratory distress, no retraction, no wheezing, wheezing - faint wheeze Cardiovascular #1: regular rate, rhythm, no edema Gastrointestinal: normal inspection, normal bowel sounds, non tender, soft, no guarding, no hernia Genitourinary: no CVA tenderness Musculoskeletal: normal inspection, back normal, normal range of motion Neurologic: alert, responsive, speech normal, normal inspection Psychiatric: normal inspection, judgement/insight normal, mood/affect normal Medical Decision Making Diagnostic Impression: Primary Impression: Urinary tract infection Additional Impression: Asthma attack ER Course She presented for cough as well as left-sided abdominal pain. Differential diagnosis includes not limited to bronchitis, viral syndrome, urinary tract infection among others. Because of complexity of patient's case laboratory tests and imaging studies were ordered. Patient's symptoms are consistent with a asthma exacerbation patient was given oral steroids as well as breathing treatment. She was given prescription for oral antibiotics due to urinary infection on laboratory testing. She is advised to follow-up with her primary care physician for recheck. She advised return if worse.patient is advised to follow up with primary care doctor in 1-2 days. Patient is advised to return if any worsening condition or if any changes in status that are concerning. This report is dictated with [employer] vamp stitcher software which may occasionally lead to discrepancies related to use of this software. Last Vital Signs Date Time Temp Pulse Resp B/P (MAP) Pulse Ox O2 Delivery O2 Flow Rate FiO2 10/15/19 09:28 97.9 102 16 142/88 97 Room Air Status: improved Disposition: HOME, SELF-CARE Condition: Stable Scripts Cephalexin* (KEFLEX*) 500 Mg Capsule 500 MG ORAL EVERY 6 HOURS, #28 CAP Prov: Adam Cooper MD 10/15/19 Dicyclomine Hcl* (DICYCLOMINE HCL*) 10 Mg Capsule 10 MG ORAL QID, #20 CAP Prov: Adam Cooper MD 10/15/19 Prednisone* (PREDNISONE*) 20 Mg Tablet 40 MG ORAL DAILY, #10 TAB Prov: Adam Cooper MD 10/15/19 Guaifenesin/Dextromethorphan* (Guaifenesin Dm Syrup*) 5 Ml Syrup 5 ML ORAL Q6H PRN for FOR COUGH, #118 ML Prov: Adam Cooper MD 10/15/19 Adam Cooper MD Oct 15, 2019 09:36
[2019-10-15] MEDS ORDERED: Guaifenesin/DM 10ml syrup ORAL ONE (09:45)
[2019-10-15] MEDS ORDERED: Albuterol/Ipratropium 3ml neb HHN ONE (09:45)
--- NOTE | 2019-10-15 09:50 | NUR ---
ED Nurse Note: RT AT THE BED SIDE FOR BREATHING TREATMENT.
[2019-10-15] MEDS ORDERED: PREDNISONE20 MG ORAL (10:07)
[2019-10-15] MEDS ORDERED: DICYCLOMINE HCL10 MG ORAL (10:07)
[2019-10-15] MEDS ORDERED: GUAIFENESIN DM118 M1 ORAL (10:07)
--- NOTE | 2019-10-15 10:30 | NUR ---
ED Nurse Note: CALLED LAB AND SPOKE TO KELECHI TO FF UP URINE TEST.
[2019-10-15 10:34] LABS: APPEARANCE,URINE CLEAR; BILIRUBIN, URINE NEGATIVE (NEGATIVE); COLOR,URINE PALE YELLOW; GLUCOSE, URINE (UA) NEGATIVE (NEGATIVE); KETONES,URINE NEGATIVE (NEGATIVE); LEUKOCYTE ESTERASE ,URINE 3+ (NEGATIVE); NITRITE,URINE NEGATIVE (NEGATIVE); PH,URINE 5 (4.5-8.0); PROTEIN,URINE NEGATIVE (NEGATIVE); UROBILINOGEN,URINE NORMAL MG/DL (0.0-1.0)
[2019-10-15] MEDS ORDERED: Dicyclomine HCl 10mg/5ml oral soln ORAL ONE (10:45)
[2019-10-15] MEDS ORDERED: Lidocaine 2% Visc 15ml soln ORAL ONE (10:45)
[2019-10-15] MEDS ORDERED: NITROFURANTOIN100 M2 ORAL ×2 (10:50)
[2019-10-15] MEDS ORDERED: CEPHALEXIN500 MG ORAL (10:53)
--- NOTE | 2019-10-15 11:14 | NUR ---
ER DISCHARGE NOTE: Patient is cleared to be discharged per ERMD DR Perea, pt is aox4, on room air, with stable vital signs. pt was given dc and prescription instructions, pt was able to verbalize understanding, pt id band removed without complications. pt is able to ambulate with steady gait. pt took all belongings.
[2019-10-15 11:15] VITALS: BP 137/82
== END 2019-10-15 11:15 | disposition home or self-care (01) ==
LOC: EMR 09:39
DX: N39.0 Urinary tract infection, site not specified (principal); J44.9 Chronic obstructive pulmonary disease, unspecified; J45.901 Unspecified asthma with (acute) exacerbation; I10 Essential (primary) hypertension; I48.91 Unspecified atrial fibrillation; K21.9 Gastro-esophageal reflux disease without esophagitis; Z87.11 Personal history of peptic ulcer disease; Z88.1 Allergy status to other antibiotic agents; Z86.61 Personal history of infections of the central nervous system
CPT/HCPCS: 81003; 86710; 87086; J7512; Z7502; 99284; J7620

== ENCOUNTER 2020-05-18 11:50 | Emergency (ER) | payer OTHER ==
[~2020-05-18] VITALS: Ht 154.9 cm; Wt 77.1 kg
[~2020-05-18 11:50] MED LIST changes: +CEPHALEXIN500 MG ORAL; +DICYCLOMINE HCL10 MG ORAL; +GUAIFENESIN DM118 M1 ORAL
[2020-05-18 11:58] VITALS: BP 129/84
--- NOTE | 2020-05-18 12:42 | Diagnostic Imaging Report ---
Indication: Cough Technique: One view of the chest Comparison: 05/01/2019 Findings: Lungs and pleural spaces are clear. Heart size is normal. No significant change Impression: No acute process
[2020-05-18 12:56] LABS: APPEARANCE,URINE SLIGHTLY CLOUDY; BASOPHILS % (AUTO) 1.6 % (0.0-2.0); BILIRUBIN, URINE NEGATIVE (NEGATIVE); COLOR,URINE PALE YELLOW; GLUCOSE, URINE (UA) NEGATIVE (NEGATIVE); HEMATOCRIT 40.6 % (37.0-47.0); HEMOGLOBIN 13.3 G/DL (12.0-16.0); KETONES,URINE NEGATIVE (NEGATIVE); LEUKOCYTE ESTERASE ,URINE 3+ (NEGATIVE); LYMPHOCYTES % (AUTO) 26.5 % (20.0-45.0); MEAN CORPUSCULAR VOLUME 101 FL (80-99); MONOCYTES % (AUTO) 7.6 % (1.0-10.0); NEUTROPHILS % (AUTO) 53.3 % (45.0-75.0); NITRITE,URINE NEGATIVE (NEGATIVE); PH,URINE 6 (4.5-8.0); PLATELET COUNT 219 K/UL (150-450); PROTEIN,URINE NEGATIVE (NEGATIVE); RED BLOOD COUNT 4.02 M/UL (4.20-5.40); RED CELL DISTRIBUTION WIDTH 12.2 % (11.6-14.8); UROBILINOGEN,URINE NORMAL MG/DL (0.0-1.0); WHITE BLOOD COUNT 5.9 K/UL (4.8-10.8)
[2020-05-18 13:05] LABS: ANION GAP 8 mmol/L (5-15); BLOOD UREA NITROGEN 16 mg/dL (7-18); CARBON DIOXIDE 28 MMOL/L (21-32); CHLORIDE 106 MMOL/L (98-107); POTASSIUM 3.8 MMOL/L (3.5-5.1); SODIUM 142 MMOL/L (136-145)
[2020-05-18 13:16] LABS: ALANINE AMINOTRANSFERASE 28 U/L (12-78); ALBUMIN 4.1 G/DL (3.4-5.0); ALBUMIN/GLOBULIN RATIO 1.2 (1.0-2.7); ALKALINE PHOSPHATASE 60 U/L (46-116); ASPARTATE AMINO TRANSFERASE 19 U/L (15-37); BILIRUBIN,TOTAL 0.5 MG/DL (0.2-1.0)
[2020-05-18] MEDS ORDERED: Ipratropium Bromide Inhaler INH SCH (13:30)
[2020-05-18] MEDS ORDERED: Albuterol/Ipratropium 3ml neb HHN ONE (13:30)
[2020-05-18] MEDS ORDERED: Levofloxacin 750mg tab ORAL ONE (13:30)
--- NOTE | 2020-05-18 13:36 | Emergency Room Report ---
History of Present Illness General Chief Complaint: Asthma Source: Patient Present Illness HPI 54-year-old [place] female with past medical history of asthma/COPD (not home O2 dependent), A. fib (no longer on blood thinners 2/2 bleeding ulcer), PUD, HTN , obesity presents the ED with complaint of shortness of breath and wheezing for the past 4 to 5 days. Pt has been using her home nebulizer, with little relief. She states this feels similar to previous asthma exacerbations that she has had in the past. She also reports increased productive cough without hemoptysis. Sputum is yellow/green. She endorses chest wall tenderness, but only after coughing fit. Denies peripheral edema, NGUYEN, orthopnea or other anginal equivalents. The patient's symptoms were gradual onset, severity was moderate, duration since 4 days. Denies recent travel, sick contacts, fever, chills, prolonged immobilization/ recent sx, or hx of blood clot. Quality: Wheezing Past medical history: Asthma, COPD, A. fib, hypertension, obesity, tobacco abuse Past surgical history: Denies Smoking: Quit Alcohol use: Denies Drug use: Denies Review of systems: CONST: No fevers or chills, No night sweats PULMONARY: No productive cough, No shortness of breath CARDIAC: No chest pain (+posttussive chest wall pain) , No palpitations GI: No vomiting, No diarrhea , No melena_or_BRBPR : No dysuria, No hematuria, No discharge NEURO: No new_focal_weakness_or_numbness, No confusion, No vision changes 14 point Review of Systems is otherwise negative except per HPI Physical Exam: GENERAL: Awake_alert_ nontoxic, no acute distress Spo2 100% on RA -normal Speaks in full complete sentences. No tripoding, no drooling, no stridor. Able to tolerate oral secretions. EYES: Extraocular muscles are intact. Conjunctivae clear. Lids without swelling ENT: External nose and ear normal_in_appearance. Oropharynx clear. Head_ atraumatic, Moist_oral_mucosa NECK: No JVD. No meningismus. No thyromegaly. Supple. Trachea midline RESP: Mild increased work of breathing. No subcostal retractions. Diffuse inspiratory and expiratory wheezing with crackles bilaterally. No rhonchi or jvd. CARDIAC: Regular rate and regular rhytm. No_significant pedal edema. ABDOMEN: Soft. Nondistended. Nontender_No_rebound_or_guarding. NO CVA TTP MSK: Normal muscle tone, without rigidity. Extremities without asymmetric deformity or swelling. SKIN: Warm and dry. No visible cyanosis or pallor NEUROLOGIC: Alert, oriented x3. Motor_and_sensation_grossly_intact. No truncal ataxia. Gait_normal Psych: Normal mood and affect, normal judgment and insight - COORDINATION OF CARE Case was discussed with: Patient Any labs and imaging that were ordered were interpreted as part of the medical decision making: Medical Decision Making/Plan: Differential diagnosis includes: COPD exacerbation, pneumonia, bronchitis, pneumothorax, pulmonary embolism, pulmonary edema, CHF, among others. The patients presentation seems most consistent with a COPD exacerbation given their wheezing on exam with a history of COPD . Chest x ray shows hyperinflated lungs. No pneumothorax. Mild interstitial lung changes/atx. No lobar pneumonia. COVID swab is negative. Troponin was negative x1. D-dimer negative. Incidentally she was found to have a UTI as well for which she received abx The patient was given albuterol, atrovent, steroids, and had serial reassessments which demonstrated significant improvement. Given the patients productive cough, and change in the color/amount of sputum, empiric antibiotics (levaquin) are indicated and were prescribed. The patient has no significant risk factors for pulmonary embolism, and has a more likely alternate cause given their wheezing on exam, thus further workup was deferred given that PE is unlikely. Unlikely ACS as chest wall pain is only during cough episode. Trop negative. The patient is now stable to be discharged home safely for further outpatient management and reevaluation by their primary medical doctor in 1-2 days. The patient will be discharged with a prescription for steroids, as well as a refill of their inhaler if needed. Allergies: Coded Allergies: AMOXICILLIN (Verified Allergy, Mild, 07/08/12) COVID-19 Screening Contact w/high risk pt: No Experienced COVID-19 symptoms?: No COVID-19 Testing performed SUSTAINABILITY DIRECTOR: No Patient History Now: No Nursing Documentation-PMH Hx Cardiac Problems: Yes - a fib Hx Hypertension: Yes Hx Asthma: Yes Hx COPD: Yes - Intubated 2010 Hx Cancer: No Hx Gastrointestinal Problems: Yes - GERD, ulcers Hx Neurological Problems: No Hx Meningitis: Yes - 1989 Hx Headaches: Yes Physical Exam Vital Signs Date Time Temp Pulse Resp B/P (MAP) Pulse Ox O2 Delivery O2 Flow Rate FiO2 05/18/20 11:54 98.2 86 20 129/84 (99) 96 Room Air Sp02 EP Interpretation: reviewed, normal Medical Decision Making Diagnostic Impression: Primary Impression: COPD exacerbation Additional Impressions: Wheezing Cough UTI (urinary tract infection) EKG Diagnostic Results AIME Samson 12-lead EKG (interpreted by me) Time: 1245 Indication: Rhythm analysis Tracing visualized and Interpreted by me. Rhythm: Normal sinus rhythm Rate: 74 bpm QTc: 439 Morphology: No_significant_ST_elevations_or_depressions, No STEMI Impression: Normal_sinus_rhythm_without_significant_abnormality Rhythm Strip Diag. Results Rhythm Strip Time: 13:35 EP Interpretation: yes Rate: 100 Rhythm: NSR, no PVC's, no ectopy Chest X-Ray Diagnostic Results Chest X-Ray Diagnostic Results : AIME Dossibkerline Samson Chest X-Ray: Views: 1 view(s) Indication: SOB Findings: Normal heart size. Mediastinum normal. No infiltrate. Impression: Hyperinflated lungs . Bibasilar atx, no ptx, no effusions. The X-ray(s) were independently viewed and interpreted contemporaneously Electronically signed by Chioma blankenship DO Reevaluation Time: 13:36 Last Vital Signs Date Time Temp Pulse Resp B/P (MAP) Pulse Ox O2 Delivery O2 Flow Rate FiO2 05/18/20 11:58 98.2 86 20 129/84 96 Room Air Status: improved Disposition: HOME, SELF-CARE Admit Decision Time: 13:36 Condition: Stable Scripts Guaifenesin/Dextromethorphan* (Guaifenesin Dm Syrup*) 5 Ml Syrup 5 ML ORAL Q6H PRN for FOR COUGH, #118 ML Prov: Chioma Fisher.O. 05/18/20 Albuterol Sulfate (PROVENTIL HFA) 6.7 Gm Hfa.aer.ad 6.7 GM IH Q4HR for wheezing for 5 Days, #7 GM Prov: Chioma Fisher.O. 05/18/20 Albuterol Sulfate* (ALBUTEROL SULFATE HHN*) 2.5 Mg/3 Ml Vial.neb 2.5 MG HHN Q4H PRN for Shortness of Breath, #25 VIAL Prov: Chioma Fisher D.O. 05/18/20 Prednisone* (PREDNISONE*) 20 Mg Tablet 40 MG ORAL DAILY, #10 TAB Prov: Chioma Fisher D.O. 05/18/20 Levofloxacin* (LEVOFLOXACIN*) 750 Mg Tablet 750 MG ORAL DAILY for 5 Days, #5 TAB Prov: Chioma Fisher D.O. 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 Follow-up with your doctor sooner if your condition requires a more timely clinical reevaluation. Return to the emergency department immediately if you feel that your condition is worsening or if you have any new or concerning symptoms. Review your discharge instructions and take any prescriptions given as instructed. Chioma Fisher D.O. May 18, 2020 13:36
[2020-05-18] MEDS ORDERED: PREDNISONE20 MG ORAL (13:39)
[2020-05-18] MEDS ORDERED: LEVOFLOXACIN750 MG ORAL (13:39)
[2020-05-18] MEDS ORDERED: PROVENTIL HFA6.7 G1 IH (13:39)
[2020-05-18] MEDS ORDERED: GUAIFENESIN DM118 M1 ORAL (13:39)
[2020-05-18] MEDS ORDERED: ALBUTEROL2.5 MG/3 M HHN (13:39)
[2020-05-18] MEDS ORDERED: Ipratropium 0.02% Inh Soln 2.5ml UD ONE (13:41)
[2020-05-18 14:25] VITALS: BP 135/70
== END 2020-05-18 14:25 | disposition home or self-care (01) ==
LOC: EMR 13:40
DX: J44.1 Chronic obstructive pulmonary disease with (acute) exacerbation (principal); R06.2 Wheezing; R05 Cough; N39.0 Urinary tract infection, site not specified; I10 Essential (primary) hypertension; K21.9 Gastro-esophageal reflux disease without esophagitis; Z86.61 Personal history of infections of the central nervous system; I48.91 Unspecified atrial fibrillation; Z79.51 Long term (current) use of inhaled steroids; Z88.1 Allergy status to other antibiotic agents; E66.9 Obesity, unspecified; Z68.32 Body mass index [BMI] 32.0-32.9, adult
CPT/HCPCS: 36415; 71045; 80053; 81003; 81025; 83690; 83880; 84484; 84702; 85025; 85379; 85610; 85730; 87086; 87181; 93005; 94640; 96365; J8540; U0002; Z7502; 99284; J7620

== ENCOUNTER 2020-09-07 08:36 | Emergency (ER) | payer OTHER ==
[~2020-09-07] VITALS: Ht 154.9 cm; Wt 77.1 kg
[~2020-09-07 08:36] MED LIST changes: +LEVOFLOXACIN750 MG ORAL; +PROVENTIL HFA6.7 G1 IH
--- NOTE | 2020-09-07 08:50 | NUR ---
ED Nurse Note: Pt walked in from home c/o left sided non raditing chest pain x 2 days that she describes as pressure and sometimes squeezing. Pt also c/o lower abd pain x 2 days. Pt denies n/v/d. Respirations even and unlabored on room air. Vitals stable as documented. Pt has hx of asthma and Afib. SR on the monitor.
[2020-09-07 09:00] VITALS: BP 131/81
--- NOTE | 2020-09-07 09:05 | NUR ---
ED Nurse Note: blood urine and covid swab brought to lab
--- NOTE | 2020-09-07 09:23 | Diagnostic Imaging Report ---
Indication: Chest pain Technique: XRAY Chest 1v Comparison: 05/18/2020 Findings: Heart size and mediastinal contours are within normal limits for AP technique. There is no focal airspace consolidation, pneumothorax or pleural effusion. There are degenerative changes in the spine. Osseous structures demonstrate no acute abnormality. Impression: No radiographic evidence of acute cardiopulmonary disease.
[2020-09-07 09:34] LABS: ANION GAP 7 mmol/L (5-15); BASOPHILS % (AUTO) 1.7 % (0.0-2.0); BLOOD UREA NITROGEN 17 mg/dL (7-18); CARBON DIOXIDE 28 MMOL/L (21-32); CHLORIDE 104 MMOL/L (98-107); CREATININE 1.1 MG/DL (0.55-1.30); EOSINOPHILS % (AUTO) 2.7 % (0.0-3.0); HEMOGLOBIN 14.2 G/DL (12.0-16.0); LYMPHOCYTES % (AUTO) 30.3 % (20.0-45.0); MEAN CORPUSCULAR VOLUME 96 FL (80-99); MONOCYTES % (AUTO) 8.8 % (1.0-10.0); NEUTROPHILS % (AUTO) 56.5 % (45.0-75.0); PLATELET COUNT 213 K/UL (150-450); POTASSIUM 3.5 MMOL/L (3.5-5.1); RED BLOOD COUNT 4.18 M/UL (4.20-5.40); RED CELL DISTRIBUTION WIDTH 13.5 % (11.6-14.8); SODIUM 139 MMOL/L (136-145); WHITE BLOOD COUNT 6.9 K/UL (4.8-10.8)
[2020-09-07] MEDS ORDERED: Albuterol/Ipratropium 3ml neb HHN ONE (09:45)
[2020-09-07 09:46] LABS: ALANINE AMINOTRANSFERASE 32 U/L (12-78); ALBUMIN/GLOBULIN RATIO 1.1 (1.0-2.7); ALKALINE PHOSPHATASE 57 U/L (46-116); ASPARTATE AMINO TRANSFERASE 19 U/L (15-37); BILIRUBIN,TOTAL 0.3 MG/DL (0.2-1.0); CALCIUM 8.8 MG/DL (8.5-10.1)
--- NOTE | 2020-09-07 10:08 | Emergency Room Report ---
History of Present Illness General Chief Complaint: Chest Pain Source: Patient Present Illness HPI 55-year-old female presents to ED with shortness of breath, cough. History of COPD. Denies fevers or chills. Denies chest pain. Started 3 days ago. No other aggravating relieving factors. 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: No Patient History Past Medical History: HTN, AFib, asthma, COPD, GERD Past Surgical History: none Pertinent Family History: none Social History: Denies: smoking, alcohol use, drug use Now: No Immunizations: UTD Nursing Documentation-[facility] Past Medical History: No History, Except For Hx Cardiac Problems: Yes - a fib Hx Hypertension: Yes Hx Asthma: Yes Hx COPD: Yes - Intubated 2010 Hx Cancer: No Hx Gastrointestinal Problems: Yes - GERD, ulcers Hx Neurological Problems: No Hx Meningitis: Yes - 1989 Hx Headaches: Yes Review of Systems All Other Systems: negative except mentioned in HPI Physical Exam Vital Signs Date Time Temp Pulse Resp B/P (MAP) Pulse Ox O2 Delivery O2 Flow Rate FiO2 09/07/20 08:40 98.1 90 17 127/89 (102) 98 Room Air 09/07/20 09:56 21 Sp02 EP Interpretation: reviewed, normal General Appearance: no apparent distress, alert, GCS 15, non-toxic Head: normocephalic, atraumatic Eyes: bilateral eye normal inspection, bilateral eye PERRL ENT: hearing grossly normal, normal pharynx, no angioedema, normal voice Neck: full range of motion, supple/symm/no masses Respiratory: chest non-tender, speaking full sentences, wheezing Cardiovascular #1: regular rate, rhythm, no edema Cardiovascular #2: 2+ carotid (R), 2+ carotid (L), 2+ radial (R), 2+ radial (L), 2+ dorsalis pedis (R), 2+ dorsalis pedis (L) Gastrointestinal: normal bowel sounds, non tender, soft, non-distended, no guarding, no rebound Rectal: deferred Genitourinary: normal inspection, no CVA tenderness Musculoskeletal: back normal, normal range of motion, gait/station normal, non- tender Neurologic: alert, motor strength/tone normal, oriented x3, sensory intact, responsive, speech normal Psychiatric: judgement/insight normal, memory normal, mood/affect normal, no suicidal/homicidal ideation Reflexes: 3+ bicep (R), 3+ bicep (L), 3+ tricep (R), 3+ tricep (L), 3+ knee (R), 3+ knee (L) Skin: no rash Lymphatic: no adenopathy Medical Decision Making Diagnostic Impression: Primary Impression: COPD exacerbation Additional Impression: UTI (urinary tract infection) Qualified Codes: N39.0 - Urinary tract infection, site not specified ER Course Hospital Course 55 yo F presents with SOB, cough. h/o COPD Differential diagnoses include: URI, bronchitis, asthma/COPD, pneumonia Clinical course Patient placed on stretcher. After initial history, physical exam reveals a female in no acute distress. Bilateral TM unremarkable. No pharyngeal erythema. No tonsillar exudates. No lymphadenopathy. wheezing Labs reviewed- no leukocytosis noted, hemoglobin/hematocrit stable, electrolytes okay, troponin negative, UA + bacteria COVID negative EKG - NSR, no acute ischemic changes interpreted by me Chest x-ray shows no infiltrate I discussed findings with patient. Vitals stable. Not hypoxic. I do not believe patient requires admission. Patient agrees. Will discharge home with antibiotics and medications. States she will follow-up with her PMD Diagnosis -COPD, UTI Stable and discharged home. Instructed to followup with PMD. Return to ED if symptoms recur or worsen Laboratory Tests Test 09/07/20 09:00 White Blood Count 6.9 K/UL (4.8-10.8) Red Blood Count 4.18 M/UL (4.20-5.40) L Hemoglobin 14.2 G/DL (12.0-16.0) Hematocrit 40.0 % (37.0-47.0) Mean Corpuscular Volume 96 FL (80-99) Mean Corpuscular Hemoglobin 33.9 PG (27.0-31.0) H Mean Corpuscular Hemoglobin Concent 35.4 G/DL (32.0-36.0) Red Cell Distribution Width 13.5 % (11.6-14.8) Platelet Count 213 K/UL (150-450) Mean Platelet Volume 6.9 FL (6.5-10.1) Neutrophils (%) (Auto) 56.5 % (45.0-75.0) Lymphocytes (%) (Auto) 30.3 % (20.0-45.0) Monocytes (%) (Auto) 8.8 % (1.0-10.0) Eosinophils (%) (Auto) 2.7 % (0.0-3.0) Basophils (%) (Auto) 1.7 % (0.0-2.0) Sodium Level 139 MMOL/L (136-145) Potassium Level 3.5 MMOL/L (3.5-5.1) Chloride Level 104 MMOL/L (98-107) Carbon Dioxide Level 28 MMOL/L (21-32) Anion Gap 7 mmol/L (5-15) Blood Urea Nitrogen 17 mg/dL (7-18) Creatinine 1.1 MG/DL (0.55-1.30) Estimat Glomerular Filtration Rate > 60 mL/min (>60) Glucose Level 90 MG/DL (74-106) Calcium Level 8.8 MG/DL (8.5-10.1) Total Bilirubin 0.3 MG/DL (0.2-1.0) Aspartate Amino Transf (AST/SGOT) 19 U/L (15-37) Alanine Aminotransferase (ALT/SGPT) 32 U/L (12-78) Alkaline Phosphatase 57 U/L (46-116) Troponin I 0.000 ng/mL (0.000-0.056) Pro-B-Type Natriuretic Peptide 53 pg/mL (0-125) Total Protein 7.5 G/DL (6.4-8.2) Albumin 4.0 G/DL (3.4-5.0) Globulin 3.5 g/dL Albumin/Globulin Ratio 1.1 (1.0-2.7) EKG Diagnostic Results Troponin ordered: Yes Rate: normal Rhythm: NSR ST Segments: no acute changes ASA given to the pt in ED: No Rhythm Strip Diag. Results EP Interpretation: yes Rhythm: NSR, no PVC's, no ectopy Chest X-Ray Diagnostic Results Chest X-Ray Diagnostic Results : Chest X-Ray Ordered: Yes # of Views/Limited/Complete: 1 View Indication: Shortness of Breath EP Interpretation: Yes Interpretation: no consolidation, no effusion, no pneumothorax, no acute cardiopulmonary disease Impression: No acute disease Electronically Signed by: Electronically signed by Seth Lynn MD Last Vital Signs Date Time Temp Pulse Resp B/P (MAP) Pulse Ox O2 Delivery O2 Flow Rate FiO2 09/07/20 09:56 80 18 100 Room Air 21 09/07/20 08:40 98.1 127/89 (102) Status: improved Disposition: HOME, SELF-CARE Condition: Stable Scripts Simethicone* (SIMETHICONE*) 80 Mg Tab.chew 80 MG ORAL Q8H PRN for GAS PAIN, #20 TAB 0 Refills Prov: Seth Lynn MD 09/07/20 Famotidine* (Pepcid 20mg tablet*) 20 Mg Tablet 20 MG ORAL DAILY for Gerd, #30 TAB 0 Refills Prov: Seth Lynn MD 09/07/20 Codeine/Promethazine Hcl* (PROMETHAZINE-CODEINE SYRUP*) 118 Ml Syrup 5 ML ORAL Q6H PRN for For Cough, #118 ML 0 Refills Prov: Seth Lynn MD 09/07/20 Levofloxacin* (LEVOFLOXACIN*) 750 Mg Tablet 750 MG ORAL DAILY, #5 TAB Prov: Seth Lynn MD 09/07/20 Prednisone* (PREDNISONE*) 20 Mg Tablet 40 MG ORAL DAILY, #10 TAB Prov: Seth Lynn MD 09/07/20 Albuterol Sulfate* (Albuterol Sulfate Hfa*) 8.5 Gm Hfa.aer.ad 2 PUFF INH Q4H, #1 INH Prov: Seth Lynn MD 09/07/20 Referrals: [facility]ERR[facility] (PCP) Seth Lynn MD Sep 07, 2020 10:08
--- NOTE | 2020-09-07 10:14 | NUR ---
ED Nurse Note: lab called and made aware that they have urine specimen in lab
[2020-09-07] MEDS ORDERED: Lidocaine 2% Visc 15ml soln ORAL ONE (10:15)
[2020-09-07] MEDS ORDERED: Dicyclomine HCl 10mg/5ml oral soln ORAL ONE (10:15)
[2020-09-07] MEDS ORDERED: Mylanta II UD 30ml ORAL ONE (10:15)
[2020-09-07 10:29] LABS: APPEARANCE,URINE SLIGHTLY CLOUDY; BILIRUBIN, URINE NEGATIVE (NEGATIVE); COLOR,URINE PALE YELLOW; GLUCOSE, URINE (UA) NEGATIVE (NEGATIVE); KETONES,URINE NEGATIVE (NEGATIVE); LEUKOCYTE ESTERASE ,URINE 3+ (NEGATIVE); NITRITE,URINE NEGATIVE (NEGATIVE); PH,URINE 6 (4.5-8.0); PROTEIN,URINE NEGATIVE (NEGATIVE); UROBILINOGEN,URINE NORMAL MG/DL (0.0-1.0)
[2020-09-07 11:03] VITALS: BP 136/79
[2020-09-07] MEDS ORDERED: PREDNISONE20 MG ORAL (11:15)
[2020-09-07] MEDS ORDERED: PROMETHAZINE-C118 M1 ORAL (11:15)
[2020-09-07] MEDS ORDERED: ALBUTEROL SULF8.5 G1 INH (11:15)
[2020-09-07] MEDS ORDERED: LEVOFLOXACIN750 MG ORAL (11:15)
[2020-09-07] MEDS ORDERED: FAMOTIDINE20 MG ORAL (11:29)
[2020-09-07] MEDS ORDERED: SIMETHICONE80 MG ORAL (11:29)
[2020-09-07 11:30] VITALS: BP 142/83
== END 2020-09-07 11:30 | disposition home or self-care (01) ==
LOC: EMR 09:15
DX: J44.1 Chronic obstructive pulmonary disease with (acute) exacerbation (principal); N39.0 Urinary tract infection, site not specified; I48.91 Unspecified atrial fibrillation; I10 Essential (primary) hypertension; Z86.61 Personal history of infections of the central nervous system; Z88.1 Allergy status to other antibiotic agents; Z79.899 Other long term (current) drug therapy
CPT/HCPCS: 36415; 71045; 80053; 81001; 83880; 84484; 85025; 87086; 93005; 94640; 96374; J7512; S0028; U0002; Z7502; 99284; J7620

== ENCOUNTER 2020-10-06 08:32 | Emergency (ER) | payer OTHER ==
[~2020-10-06] VITALS: Ht 154.9 cm; Wt 79.4 kg
[~2020-10-06 08:32] MED LIST changes: +ALBUTEROL SULF8.5 G1 INH; +FAMOTIDINE20 MG ORAL; +SIMETHICONE80 MG ORAL
[2020-10-06 08:50] VITALS: BP 130/80
--- NOTE | 2020-10-06 08:51 | Emergency Room Report ---
History of Present Illness General Chief Complaint: Asthma Source: Patient Present Illness HPI Patient is a 55-year-old female presents for increased difficulty with breathing. Prior history of COPD. States that she had been a smoker in high school but does not smoke currently. Reports having increased wheezing despite medications which he is taking which include long-acting inhaler as well as steroid inhaler and albuterol. Denies any new leg swelling or chest discomfort. Chronic back pain. Denies any fever or productive cough. Denies sick contacts. 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 Patient History Past Medical History: see triage record Now: No Reviewed Nursing Documentation: PMH: Agreed; PSxH: Agreed Nursing Documentation-PMH Hx Cardiac Problems: Yes - a fib Hx Hypertension: Yes Hx Asthma: Yes Hx COPD: Yes - Intubated 2010 Hx Cancer: No Hx Gastrointestinal Problems: Yes - GERD, ulcers Hx Neurological Problems: No Hx Meningitis: Yes - 1989 Hx Headaches: Yes Review of Systems All Other Systems: negative except mentioned in HPI Physical Exam Vital Signs Date Time Temp Pulse Resp B/P (MAP) Pulse Ox O2 Delivery O2 Flow Rate FiO2 10/06/20 08:38 98.1 86 20 130/80 (97) 95 Room Air Sp02 EP Interpretation: reviewed, normal General Appearance: normal inspection, well appearing, no apparent distress, alert, GCS 15, obese Head: atraumatic ENT: normal ENT inspection, hearing grossly normal, normal voice Neck: normal inspection, full range of motion, supple, no bony tend Respiratory: normal inspection, no respiratory distress, no retraction, wheez ing Cardiovascular #1: regular rate, rhythm, no edema Gastrointestinal: normal inspection, normal bowel sounds, non tender, soft, no guarding, no hernia Genitourinary: no CVA tenderness Musculoskeletal: normal inspection, back normal, normal range of motion Neurologic: alert, motor strength/tone normal, financial services consultant III-XII nml as tested, oriented x3, responsive, speech normal, normal inspection Psychiatric: normal inspection, judgement/insight normal, mood/affect normal Medical Decision Making Diagnostic Impression: Primary Impression: COPD exacerbation ER Course Patient presented for shortness of breath. Differential included but was not limited to anemia, pneumonia, pneumothorax, myocardial infarction, pericardial effusion, congestive heart failure, acidosis. Patient presents with a longstanding history of COPD. She was given oral steroids. Does not appear to be in any acute distress. Patient was given breathing treatment. Chest x-ray showed basilar atelectasis possible early pneumonia. Patient was given breathing treatment as well as oral steroids in the emergency department. Patient was given prescriptions for medications for asthma. She is advised to return if worse. This medical record is generated with [employer] in home baby sitter software. There may be some in home baby sitter discrepancies related to use of this software EKG Diagnostic Results Rate: normal Rhythm: NSR ST Segments: no acute changes Last Vital Signs Date Time Temp Pulse Resp B/P (MAP) Pulse Ox O2 Delivery O2 Flow Rate FiO2 10/06/20 08:38 98.1 86 20 130/80 (97) 95 Room Air Status: improved Disposition: HOME, SELF-CARE Condition: Stable Scripts Ipratropium/Albuterol Sulfate (DuoNeb 0.5-3(2.5)mg/3ml) 3 Ml Ampul.neb 3 ML HHN EVERY 6 HOURS, #30 EA Prov: Adam Cooper MD 10/06/20 Azithromycin* (ZITHROMAX*) 250 Mg Tablet 250 MG ORAL DAILY, #6 TAB 0 Refills Take two tables once daily for 1 day, then one tablet once daily for 4 days. Prov: Adam Cooper MD 10/06/20 Prednisone* (PREDNISONE*) 20 Mg Tablet 40 MG ORAL DAILY, #10 TAB Prov: Adam Cooper MD 10/06/20 Adam Cooper MD Oct 06, 2020 08:51
--- NOTE | 2020-10-06 08:51 | NUR ---
came to er complaits of shortness of breath and wheezing using her inhaler but not improving
[2020-10-06] MEDS ORDERED: Albuterol/Ipratropium 3ml neb HHN ONE ×2 (09:00→10:00)
[2020-10-06] MEDS ORDERED: PREDNISONE20 MG ORAL (10:30)
[2020-10-06] MEDS ORDERED: guaiFENesin 100mg/5ml Liq ud ORAL ONE (10:45)
[2020-10-06] MEDS ORDERED: ZITHROMAX250 MG ORAL (11:29)
[2020-10-06 11:30] VITALS: BP 126/78
[2020-10-06] MEDS ORDERED: DUONEB 0.5-3(2.53 ML HHN (11:33)
[2020-10-06 11:35] VITALS: BP 126/78
--- NOTE | 2020-10-06 11:35 | NUR ---
ED Nurse Note: Pt cleared by health care Provider for discharge. DC instructions/prescription was given and explained to pt and verbalized understanding of teachings. All medical deviecs such as ID band removed. Pt is AAO x4, ambulatory and left with all personal belongings.
--- NOTE | 2020-10-06 13:44 | Diagnostic Imaging Report ---
Indication: Shortness of breath Technique: One view of the chest Comparison: 09/07/2020 Findings: Lungs and pleural spaces are clear. Heart size is normal. Impression: No acute process
== END 2020-10-06 11:41 | disposition home or self-care (01) ==
LOC: EMR 09:13
DX: J44.1 Chronic obstructive pulmonary disease with (acute) exacerbation (principal); I48.91 Unspecified atrial fibrillation; I10 Essential (primary) hypertension; Z79.51 Long term (current) use of inhaled steroids; Z88.1 Allergy status to other antibiotic agents
CPT/HCPCS: 71045; 93005; J7512; Z7502; 99284; J7620

== ENCOUNTER 2020-10-25 07:43 | Emergency (ER) | payer OTHER ==
[~2020-10-25] VITALS: Ht 154.9 cm; Wt 81.2 kg
[~2020-10-25 07:43] MED LIST changes: +DUONEB 0.5-3(2.53 ML HHN
[2020-10-25 08:25] VITALS: BP 115/78
--- NOTE | 2020-10-25 08:28 | Emergency Room Report ---
History of Present Illness General Chief Complaint: Flu Like Symptoms Source: Patient Present Illness HPI Disclaimer: Please note that this report is being documented using DRAGON technology. This can lead to erroneous entry secondary to incorrect interpretation by the dictating instrument. HPI: 55-year-old female history of COPD/asthma, atrial fibrillation no longer anticoagulated secondary to gastric ulcer bleeding, sciatica, osteoarthritis presents for evaluation of joint pain, fatigue. Patient states has been feeling unwell for approximately 2 to 3 days. Reports generalized weakness and fatigue. Feels worn out and sluggish. Reports pain over the right buttock rating down the lateral portion of the right leg down to the knee. Denies trauma or mid back pain. Denies pain in the left lower extremity. Denies urinary retention, fecal incontinence, numbness or tingling in the saddle region. Denies lower e xtremity weakness or difficulty ambulating. Denies shortness of breath or chest pain. Reports dry mouth, dehydration symptoms. States she had diarrhea yesterday but this resolved. No recent Covid test. No known sick contacts. 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 Patient History Last Menstrual Period: none Now: No Nursing Documentation-PMH Past Medical History: No History, Except For Hx Cardiac Problems: Yes - a fib Hx Hypertension: Yes Hx Asthma: Yes Hx COPD: Yes - Intubated 2010 Hx Cancer: No Hx Gastrointestinal Problems: Yes - GERD, ulcers Hx Neurological Problems: No - sciatica Hx Meningitis: Yes - 1989 Hx Headaches: Yes Review of Systems All Other Systems: negative except mentioned in HPI Physical Exam Vital Signs Date Time Temp Pulse Resp B/P (MAP) Pulse Ox O2 Delivery O2 Flow Rate FiO2 10/25/20 08:08 103.1 120 22 115/78 (90) 96 Room Air General: Awake and alert, no acute distress HEENT: NC/AT. EOMI. Cardiovascular: Tachycardic Resp: Normal work of breathing. No cough, wheezing or crackles appreciated Abdomen: Abdomen is soft, nondistended. Nontender Skin: Intact. No abrasions, laceration or rash over the exposed skin MSK: Normal tone and bulk. Moving all extremities. No obvious deformity. Neuro: Awake and alert. Mentating appropriately. Spine: No tenderness, step-off or deformity in the midline over the lumbosacral spine. No paraspinal tenderness. Back: Tenderness palpation over the right gluteus extending over the IT band down the right leg to the knee. No deformity. Full range of motion. Ambulating without difficulty. Medical Decision Making Diagnostic Impression: Primary Impression: Influenza-like symptoms Additional Impression: Fever ER Course 55-year female history of COPD/asthma and atrial fibrillation who presents for flulike symptoms. Patient reports fatigue, feeling dehydrated, myalgias. Arrives febrile and tachycardic. Patient given IV fluids, NSAIDs. Fever improved. Heart rate improved. Patient feeling better after medication and IV fluids. Labs are within normal limits. No obvious infiltrate on chest x-ray. Patient may have coronavirus and recommended outpatient testing as we are unable to offer rapid testing to ER patients at this time. Discussed quarantine precautions, handwashing, basic care. She understands and agrees with treatment plan will be discharged home. Laboratory Tests Test 10/25/20 08:26 White Blood Count 4.5 K/UL (4.8-10.8) L Red Blood Count 4.03 M/UL (4.20-5.40) L Hemoglobin 13.0 G/DL (12.0-16.0) Hematocrit 39.9 % (37.0-47.0) Mean Corpuscular Volume 99 FL (80-99) Mean Corpuscular Hemoglobin 32.2 PG (27.0-31.0) H Mean Corpuscular Hemoglobin Concent 32.5 G/DL (32.0-36.0) Red Cell Distribution Width 12.3 % (11.6-14.8) Platelet Count 158 K/UL (150-450) Mean Platelet Volume 8.3 FL (6.5-10.1) Neutrophils (%) (Auto) 66.9 % (45.0-75.0) Lymphocytes (%) (Auto) 18.1 % (20.0-45.0) L Monocytes (%) (Auto) 13.3 % (1.0-10.0) H Eosinophils (%) (Auto) 0.6 % (0.0-3.0) Basophils (%) (Auto) 1.2 % (0.0-2.0) Sodium Level 139 MMOL/L (136-145) Potassium Level 3.9 MMOL/L (3.5-5.1) Chloride Level 102 MMOL/L (98-107) Carbon Dioxide Level 28 MMOL/L (21-32) Anion Gap 9 mmol/L (5-15) Blood Urea Nitrogen 17 mg/dL (7-18) Creatinine 1.4 MG/DL (0.55-1.30) H Estimated Glomerular Filtration Rate 47.6 mL/min (>60) Glucose Level 95 MG/DL (74-106) Calcium Level 9.0 MG/DL (8.5-10.1) Total Bilirubin 0.5 MG/DL (0.2-1.0) Aspartate Amino Transferase (AST) 28 U/L (15-37) Alanine Aminotransferase (ALT) 35 U/L (12-78) Alkaline Phosphatase 65 U/L (46-116) Troponin I 0.000 ng/mL (0.000-0.056) Total Protein 8.0 G/DL (6.4-8.2) Albumin 3.6 G/DL (3.4-5.0) Globulin 4.4 g/dL Albumin/Globulin Ratio 0.8 (1.0-2.7) L EKG Diagnostic Results Troponin ordered: Yes When was troponin ordered?: Oct 25, 2020 EKG Time: 08:30 Rate: tachycardiac Rhythm: NSR ST Segments: no acute changes Other Impression Sinus tachycardia with left axis. No obvious ischemic changes. Intervals within normal limits Rhythm Strip Diag. Results Rhythm Strip Time: 08:30 EP Interpretation: yes Rate: 115 Rhythm: NSR, no PVC's, no ectopy Last Vital Signs Date Time Temp Pulse Resp B/P (MAP) Pulse Ox O2 Delivery O2 Flow Rate FiO2 10/25/20 08:08 103.1 120 22 115/78 (90) 96 Room Air Disposition: HOME, SELF-CARE Condition: Stable Scripts Albuterol Sulfate (VENTOLIN HFA) 18 Gm Hfa.aer.ad 1 PUFF INH EVERY 6 HOURS, #18 GM 0 Refills Prov: Salvador Castillo MD 10/25/20 Acetaminophen* (TYLENOL EXTRA STRENGTH*) 500 Mg Tablet 500 MG ORAL Q8H PRN for Prn Headache/Temp > 101, #30 TAB 0 Refills Prov: Salvador Castillo MD 10/25/20 Referrals: [facility] [place],REFERRING (PCP) Salvador Castillo MD Oct 25, 2020 08:28
[2020-10-25] MEDS ORDERED: Ketorolac 30mg Inj IV ONE (08:30)
[2020-10-25] MEDS ORDERED: Acetaminophen 500mg (ES) tab ORAL ONE (08:45)
[2020-10-25 09:01] LABS: BASOPHILS % (AUTO) 1.2 % (0.0-2.0); EOSINOPHILS % (AUTO) 0.6 % (0.0-3.0); HEMATOCRIT 39.9 % (37.0-47.0); LYMPHOCYTES % (AUTO) 18.1 % (20.0-45.0); MEAN CORPUSCULAR VOLUME 99 FL (80-99); MONOCYTES % (AUTO) 13.3 % (1.0-10.0); NEUTROPHILS % (AUTO) 66.9 % (45.0-75.0); PLATELET COUNT 158 K/UL (150-450); RED BLOOD COUNT 4.03 M/UL (4.20-5.40); RED CELL DISTRIBUTION WIDTH 12.3 % (11.6-14.8); WHITE BLOOD COUNT 4.5 K/UL (4.8-10.8)
[2020-10-25 09:06] LABS: CREATININE 1.4 MG/DL (0.55-1.30); POTASSIUM 3.9 MMOL/L (3.5-5.1)
[2020-10-25] MEDS ORDERED: TYLENOL EXTRA500 MG ORAL (09:10)
[2020-10-25 09:11] LABS: ALBUMIN 3.6 G/DL (3.4-5.0); ALBUMIN/GLOBULIN RATIO 0.8 (1.0-2.7); BILIRUBIN,TOTAL 0.5 MG/DL (0.2-1.0)
[2020-10-25] MEDS ORDERED: VENTOLIN HFA18 GM INH ×3 (09:27→09:47)
[2020-10-25 09:38] VITALS: BP 115/62
--- NOTE | 2020-10-25 14:32 | Diagnostic Imaging Report ---
Indication: Chest pain Technique: One view of the chest Comparison: 10/06/2020 Findings: Lungs and pleural spaces are clear. Heart size is normal. Impression: No acute process
== END 2020-10-25 09:50 | disposition home or self-care (01) ==
LOC: EMR 08:17
DX: J11.1 Influenza due to unidentified influenza virus with other respiratory manifestations (principal); R50.9 Fever, unspecified; J44.9 Chronic obstructive pulmonary disease, unspecified; M19.90 Unspecified osteoarthritis, unspecified site; Z87.891 Personal history of nicotine dependence; Z88.1 Allergy status to other antibiotic agents; K62.89 Other specified diseases of anus and rectum; M25.561 Pain in right knee; I10 Essential (primary) hypertension; Z86.61 Personal history of infections of the central nervous system; K21.9 Gastro-esophageal reflux disease without esophagitis; R00.0 Tachycardia, unspecified
CPT/HCPCS: 36415; 71045; 80053; 84484; 85025; 96361; 96374; J1885; J7030; Z7502; 99284